=== PATIENT | male | born 1955 | race Caucasian/White ===

== ENCOUNTER 2024-09-30 11:44 | Outpatient (CLI) | payer OTHER | END 2024-09-30 23:59 | disposition home or self-care (01) | LOC: RAD 11:44 | PROVIDERS: ATTEND Family Medicine | DX: M16.0 Bilateral primary osteoarthritis of hip (principal); M17.11 Unilateral primary osteoarthritis, right knee; M17.4 Other bilateral secondary osteoarthritis of knee | CPT/HCPCS: 73522; 73564 ==

== ENCOUNTER 2025-04-11 12:23 | Outpatient (CLI) | payer MEDICARE ==
--- NOTE | 2025-04-11 13:19 | VASCULAR REPORT ---
Right lower extremity venous duplex Clinical History: Right leg swelling Comparison: None Technique: Duplex Doppler evaluation of the deep venous system of the right lower extremity from the common femo ral vein to the popliteal vein including color Doppler and spectral/pulsed waveform analysis was perf ormed. Findings: The common femoral vein demonstrates appropriate compressibility and waveform variability. There is compressibility/patency of the great saphenous vein at the proximal thigh. The femoral vein demonstrates appropriate compressibility and waveform variability. The deep femoral vein demonstrates appropriate compressibility and waveform variability. The popliteal vein demonstrates appropriate compressibility and waveform variability. There is normal compressibility at the tibioperoneal trunk. Impression: No right femoropopliteal venous thrombosis. Contralateral common femoral vein is patent.
== END 2025-04-11 23:59 | disposition home or self-care (01) ==
LOC: VAS 12:23
PROVIDERS: ATTEND Hospitalist
DX: R60.0 Localized edema (principal)
CPT/HCPCS: 93971

== ENCOUNTER 2025-07-11 08:17 | Day surgery (SDC) | payer MEDICARE ==
[2025-07-11] VITALS (10 sets, daily range): BP systolic 77–152; BP diastolic 48–95; PULSE 61–88; RESP 13–21; TEMP 97.7; O2SAT 94–98
[~2025-07-11] VITALS: Ht 185.4 cm; Wt 171.0 kg
[~2025-07-11 08:17] MED LIST: ACET325T57 PO; ALBU8HFA INH; IBUP-49 PO; MELA3CAP2 PO; MOME13HF12 INH; ringers solution, lacted 1,000 ML IV SCH
[2025-07-11 09:50] LABS: MEAN PLATELET VOLUME 7.4 FL (7.4-10.4); PRE OP HEMATOCRIT 41.5 % (42.0-52.0); PRE OP HEMOGLOBIN 14.0 g/dL (14.0-17.9); PRE OP PLATELET COUNT 262 X10'3 (140-440); PRE OP WHITE BLOOD COUNT 5.3 10'3 (4.8-10.8); RED CELL DISTRIBUTION WIDTH 13.7 % (11.5-14.5)
[2025-07-11 10:05] LABS: CREATININE 0.85 MG/DL (0.60-1.10); TOTAL CARBON DIOXIDE 29.9 MMOL/L (24-32); eCRCL 91 ML/MIN; eGFR 89 ML/MIN
--- NOTE | 2025-07-11 11:03 | ELECTROCARDIOGRAPH REPORT ---
[facility] Test Date: 2025-07-11 Test Time: 09:24:48 Pat Name: XANDER LANCASTER Department: PRE/OP CARDIOLOGY Room: Gender: M Neon Sign Maker: YVETTE : 1955 Requested By: BOB HENLEY Order Number: [id number] Reading MD: Dr. JIM Jackson Measurements Intervals M[place]ie Rate: 63 P: 46 SD: 178 QRS: 32 QRSD: 104 T: 14 QT: 415 QTc: 425 Interpretive Statements Sinus rhythm Abnormal R-wave progression, early transition Electronically Signed On 07-12-2025 19:12:[address] JIM Jackson Please click the below link to view image of tracing.
[2025-07-11] MEDS ORDERED: propofol inj 20 ML IV ONE ×2 (11:09→11:22)
== END 2025-07-11 12:42 | disposition home or self-care (01) ==
LOC: GI LAB 08:17
PROVIDERS: ATTEND Internal Medicine Gastroenterology
DX: Z12.11 Encounter for screening for malignant neoplasm of colon (principal); K64.8 Other hemorrhoids; D12.3 Benign neoplasm of transverse colon; K57.30 Diverticulosis of large intestine without perforation or abscess without bleeding; I10 Essential (primary) hypertension; E66.01 Morbid (severe) obesity due to excess calories; J44.9 Chronic obstructive pulmonary disease, unspecified; K21.9 Gastro-esophageal reflux disease without esophagitis; G47.33 Obstructive sleep apnea (adult) (pediatric); Z79.1 Long term (current) use of non-steroidal anti-inflammatories (NSAID); Z79.899 Other long term (current) drug therapy; Z98.890 Other specified postprocedural states; Z68.42 Body mass index [BMI] 45.0-49.9, adult
CPT/HCPCS: 36415; 45385; 80053; 82948; 85025; 93005; J2704; J7120; Z7512; A4620; C1889